=== PATIENT | female | born 1990 | race Caucasian/White ===

== ENCOUNTER 2024-09-15 15:40 | Outpatient (CLI) | payer BC, SELFPAY ==
[2024-09-15 16:49] LABS: Thyroid Stimulating Hormone 0.399 uIU/mL (0.465-4.680)
--- OUTSIDE RECORDS SUMMARY | 2024-09-15 17:04 | XMS_ITS | Referral Summary ---
Author Organization [facility] al Address [address] [place] [address] Care Team Providers Care Credit Review Manager Name Role Phone No, Physician Primary Care Provider [phone] Encounters Date Type Department Care Team Description 07/15/2024 Telephone [facility] [address] [place] [address] [address] [place] [address] Joan Rajan from Last 3 Months Allergies No known active allergies Medications spironolactone (ALDACTONE) 50 mg tablet Take 1 tablet (50 mg total) by mouth daily 90 tablet 3 06/14/2020 Active multivit [id number] 1-dha 27 mg iron-1 mg -300 mg capsuleIndicatio ns:General counseling and advice on procreative management Take 1 tablet/caps ule by mouth daily 30 capsule 11 02/16/2024 Active Active Problems No known active problems Social History Tobacco Use Types Packs/Day Years Used Date Smoking Tobacco: Never Smokeless Tobacco: Never AUDIT-C Answer Date Recorded Q1: How often do you have a drink containing alc ohol? 2-4 times a month 02/16/2024 Q2: How many drinks containi ng alcohol do you have on a typical day when you are drinking? 1 or 2 02/16/2024 Frequency of Binge Drinking Not on file 01/28 Personal Safety Answer Date Recorded Getting School Help Needed Not on file 09/13 Comments No Sex and Gender Information Value Date Recorded Sex Assigned at Not on file Legal Sex Female 8:02 AM SANITARIAN Gender Identity Female 11/18/2019 2:54 PM CDT Sexual Orientation Straight 11/18/2019 2: 54 PM CDT Last Filed Vital Signs Vital Sign Reading Time Taken Comments Blood Pressure 131/87 02/16/2024 2:56 PM CDT Pulse 102 08/25/2018 10:53 PM SANITARIAN Temperature 37.6 C (99.7 F) 08/25/2018 10:53 PM SANITARIAN Respiratory Rate 17 08/25/2018 10:53 PM SANITARIAN Oxygen Saturation 100% 08/25/2018 10:53 PM SANITARIAN Inhaled Oxygen Concentration - - Weight 119.3 kg (263 lb) 02/16/2024 2:56 PM CDT Height 167.6 cm (5' 6 ) 02/16/2024 2:56 PM CDT Body Mass Index 42.45 02/16/2024 2:56 PM CDT Plan of Treatment Not on file Procedures Procedure Name Priority Date/Time Associated Diagnosis Comments HIGH RISK HPV DNA DETECTION WITH GENOTYPING Routine 02/16/2024 3:33 PM CDT Well woman exam from Last 3 Months or Most Recently Relevant to Health Maintenance Results * (ABNORMAL) High Risk HPV DNA Detection with Genotyping (Molecular component) (02/16/2024 3:33 PM CDT) Pathologist [facility] HPV HR 16 Not Detected Not Detected [facility] HPV HR 18 Not Detected Not Detected [facility] HPV HR Non 16/18 Detected(A) Not Detected [facility] Comment: Interpretive Data Nucleic acid amplification for detection of high-risk Human Papilloma virus (HPV) is performed by the Pallavi Roseanne 6800 HPV test. This assay specifically detects HPV-16 and HPV-18 genotypes. The following HPV genotypes are detected as high-risk HPV: HPV-31, 33, 35, ,39, 45, 51, 52, 56, 58, 59, 66, and 68. This assay has been approved by the [place] Food and Drug Administration for detection of HPV in cervical specimens collected by a physician using an endocervical brush/spatula or cervical broom and placed in the ThinPrep Pap Test PreservCyt collection containers. The performance characteristics of this test have been verified by the [facility] Molecular Infectious Disease laboratory. Correlate with separately reported cytology results, as applicable. Interpretive data last revised 22 Endocervical 02/16/2024 3:33 PM CDT 02/17/2024 10:08 AM CDT Narrative [facility] - 02/18/2024 9:59 AM CDT Clinical history and diagnosis->33yo G0 Number of vials->1 Testing type->Screening Last menstrual period (date if known)->NA/IUD Contraceptive use->Hormonal Contraceptive use->IUD Everett Taylor MD LAB BODY FLUIDS AND STOOLS ORDERABLES Final Result [facility] Department [place] [address] [facility] from Last 3 Months or Most Recently Relevant to Health Maintenance Insurance [facility] [employer] [facility] [employer] Care Teams Credit Review Manager Relationship Specialty Start Date End Date No, Physician PCP - General 07/23/18
--- OUTSIDE RECORDS SUMMARY | 2024-09-15 17:04 | XMS_ITS | Clinical Summary ---
Author Organization [facility] al Address [address] [place] [address] Care Team Providers Care Budget Counselor Name Role Phone No, Physician Primary Care Provider [phone] Allergies No known active allergies Medications spironolactone (ALDACTONE) 50 mg tablet Take 1 tablet (50 mg total) by mouth daily 90 tablet 3 06/14/2020 Active multivit [id number] 1-dha 27 mg iron-1 mg -300 mg capsuleIndicatio ns:General counseling and advice on procreative management Take 1 tablet/caps ule by mouth daily 30 capsule 11 02/16/2024 Active Active Problems No known active problems Encounters Date Type Department Care Team Description 07/15/2024 Telephone [facility] [address] [place] [address] [address] [place] [address] Joan Rajan from Last 3 Months Family History Medical History Relation Name Comments Lymphoma Father Thyroid disease Mother Relation Name Status Comments Father Mother Social History Tobacco Use Types Packs/Day Years [...] on file 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 Gender Identity Female 11/18/2019 2:54 PM CDT Sexual Orientation Straight 11/18/2019 2: 54 PM CDT Obstetrics History Para Term AB IAB SAB Ectopic Multiple Livin g Live Births 0 0 0 0 0 0 0 0 0 0 0 Last Filed Vital Signs Vital Sign Reading Time Taken Comments Blood Pressure 131/87 02/16/2024 2:56 PM CDT Pulse 102 08/25/2018 10:53 PM COMMUNICATIONS ELECTRICIAN SUPERVISOR Temperature 37.6 C (99.7 F) 08/25/2018 10:53 PM COMMUNICATIONS ELECTRICIAN SUPERVISOR Respiratory Rate 17 08/25/2018 10:53 PM COMMUNICATIONS ELECTRICIAN SUPERVISOR Oxygen Saturation 100% 08/25/2018 10:53 PM COMMUNICATIONS ELECTRICIAN SUPERVISOR Inhaled Oxygen Concentration - - Weight 119.3 kg (263 lb) 02/16/2024 2:56 PM CDT Height 167.6 cm (5' 6 ) 02/16/2024 2:56 PM CDT Body Mass Index 42.45 02/16/2024 2:56 PM CDT Plan of Treatment Health Maintenance Due Date Last Done Comments Depression Screening 1991 Hepatitis C Screening 1991 DTaP/Tdap/Td Vaccine (1 - Tdap) 2002 Varicella Vaccines (1 of 2 - 13+ 2-dose series) 2004 Hepatitis B Screening 2009 Regular Well Visit/Exam 18-64 2009 Influenza Vaccine (#1) 2024 Cervical Cancer Screening 02/15/20252023, 02/16/2024 HPV Vaccines Aged Out No longer eligi ble based on patient's age to complete this topic Pneumococcal vaccine <65 Aged Out No longer eligible based on patient's age to complete this topic Procedures Procedure Name Priority Date/Time Associated Diagnosis Comments HIGH RISK HPV DNA DETECTION WITH GENOTYPING Routine 02/16/2024 3:33 PM CDT Well woman exam from Last 3 Months or Most Recently Relevant to Health Maintenance Results * (ABNORMAL) High Risk HPV DNA Detection with Genotyping (Molecular component) (02/16/2024 3:33 PM CDT) Pathologist [facility] HPV HR 16 Not Detected Not Detected [facility] HPV HR 18 Not Detected Not Detected [facility] HPV HR Non 16/18 Detected(A) Not Detected [facility] Comment: Interpretive Data Nucleic acid amplification for [...] this test have been verified by the [facility] Molecular Infectious Disease laboratory. Correlate with separately reported cytology results, as applicable. Interpretive data last revised 22 Endocervical 02/16/2024 3:33 PM CDT 02/17/2024 10:08 AM CDT Narrative [facility] - 02/18/2024 9:59 AM CDT Clinical history and diagnosis->33yo G0 Number of vials->1 Testing type->Screening Last menstrual period (date if known)->NA/IUD Contraceptive use->Hormonal Contraceptive use->IUD Everett Taylor MD LAB BODY FLUIDS AND STOOLS ORDERABLES Final Result [facility] Department of Laboratories [place], [place] [id number] [facility] from Last 3 Months or Most Recently Relevant to Health Maintenance Insurance [facility] [employer]AL [facility] [employer] Care Teams Budget Counselor Relationship Specialty Start Date End Date No, Physician PCP - General 07/23/18
[2024-09-15 19:42] LABS: Hemoglobin A1C 5.1 % (<5.7)
[2024-09-16 06:04] LABS: Progesterone <0.5 ng/mL
[2024-09-21 02:49] LABS: FSH 4.6 mIU/mL; LH 6.8 mIU/mL; Prolactin 11.6 ng/mL
== END 2024-09-15 15:41 | disposition home or self-care (01) ==
LOC: ANHLAB 15:42
PROVIDERS: Visit Provider Student in an Organized Health Care Education/Training Program
DX: N91.2 Amenorrhea, unspecified (principal)
CPT/HCPCS: 36415; 82672; 83001; 83002; 83036; 84144; 84146; 84403; 84443

== ENCOUNTER 2025-02-03 15:03 | Outpatient (CLI) | payer BC, SELFPAY ==
--- OUTSIDE RECORDS SUMMARY | 2025-02-03 15:07 | XMS_ITS | Clinical Summary ---
Author Organization [facility] Address [address] [place] [address] Care Team Providers Care Billing Clerk Name Role Phone Daniel Kim MD Primary Care Provider [phone] Veto Aaron MD Unavailable [phone] Allergies No known active allergies Medications multivit [id number] 1-dha 27 mg iron-1 mg -300 mg capsuleIndicatio ns:General counseling and advice on procreative management Take 1 tablet/caps ule by mouth daily 30 capsule 11 02/16/2024 Active medroxyPROGESTER one (PROVERA) 10 mg tablet 12/22/2024 Active metFORMIN (GLUCOPHAGE) 500 mg tablet 12/14/2024 Active semaglutide (WEGOVY) 0.25 mg/0.5 mL auto-injector Inject 0.25 mg under the skin every 7 days 2 mL 12/22/2024 Active Active Problems Problem Noted Date Diagnosed Date PCOS (polycystic ovarian syndrome) 12/22/2024 Class 3 severe obesity due t o excess calories without serious comorbidity with body mass index (BMI) of 40.0 to 44.9 in adult 12/22/2024 Encounters Date Type Department Care Team Description 12/24/2024 Telephone [facility] Primary Care at [address] [address] Daniel Kim MD PA for Wegovy 0.25MG/0.5ML auto-injectors 12/22/2024 9:30 AM CDT Office Visit [facility] Primary Care at [address] [address] Daniel Kim MD Establishing care with new doctor, encounter for (Primary Dx); Screening, lipid; Screening for thyroid disorder; Family history of thyroid disease in mother; Need for hepatitis B screening test; Need for hepatitis C screening test from Last 3 Months Immunizations Immunization Administration Dates Next Due Influenza, Trivalent, Cell C ulture-based MDCK, Preservative Free, Antibiotic Free, Intramuscular 06/28/2024 Tdap 06/28/2024 Medical History Medical History Date Comments PCOS (polycystic ovarian syndrome) Class 3 severe obesity due t o excess calories without serious comorbidity with body mass index (BMI) of 40.0 to 44.9 in adult 12/22/2024 Family History Medical History Relation Name Comments Obesity Brother 1 Zeke Lyon No Known Problems Brother 2 No Known Problems Brother 3 No Known Problems Brother 4 Lymphoma Father Brown Lyon Lung cancer Maternal Grandfather Stroke Maternal Grandmother Hearing loss Mother Lily Lyon Obesity Mother Lily Lyon Thyroid disease Mother Lily Lyon Skin cancer Paternal Grandfather Stroke Paternal Grandmother Diabetes Neg Hx Relation Name Status Comments Brother 1 Zeke Lyon Alive Brother 2 Alive Brother 3 Alive Brother 4 Alive Father Brown Lyon Alive Maternal Grandfather Maternal Grandmother Alive Mother Lily Lyon Alive Paternal Grandfather Paternal Grandmother Social History Tobacco Use Types Packs/Day Years Used Date Smoking Tobacco: Never Smokeless Tobacco: Never AUDIT-C Answer Date Recorded Q1: How often do you have a drink containing alc ohol? 2-4 times a month 12/22/2024 Q2: How many drinks containi ng alcohol do you have on a typical day when you are drinking? 1 or 2 12/22/2024 Q3: How often do you have si x or more drinks on one occasion? 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 Gender Identity Female 11/18/2019 2:54 PM CDT Sexual Orientation Straight 11/18/2019 2: 54 PM CDT Obstetrics History Para Term AB IAB SAB Ectopic Multiple Livin g Live Births 0 0 0 0 0 0 0 0 0 0 0 Last Filed Vital Signs Vital Sign Reading Time Taken Comments Blood Pressure 118/80 12/22/2024 9:38 AM CDT Pulse 85 12/22/2024 9:38 AM CDT Temperature 36.2 C (97.1 F) 12/22/2024 9:38 AM CDT Respiratory Rate 18 12/22/2024 9:38 AM CDT Oxygen Saturation 98% 12/22/2024 9:38 AM CDT Inhaled Oxygen Concentration - - Weight 120.7 kg (266 lb) 12/22/2024 9:38 AM CDT Height 167.6 cm (5' 6) 12/22/2024 9:38 AM CDT Body Mass Index 42.93 12/22/2024 9:38 AM CDT Plan of Treatment Health Maintenance Due Date Last Done Comments Hepatitis C Screening 1991 Varicella Vaccines (1 of 2 - 13+ 2-dose series) 2004 Hepatitis B Screening 2009 HPV Vaccines (1 - 3-dose SCD M series) 2018 Cervical Cancer Screening 02/15/20252023, 02/16/2024 Influenza Vaccine (#1) 2025 06/28/2024 Depression Screening 12/22/2025 12/22/2024 Regular Well Visit/Exam 18-64 12/22/2025 12/22/2024 DTaP/Tdap/Td Vaccine (2 - Td or Tdap) 06/28/2034 06/28/2024 Pneumococcal vaccine <65 Aged Out No longer [...] Genotyping (Molecular component) (02/16/2024 3:33 PM CDT) HPV HR 16 Not Detected Not Detected [facility] HPV HR 18 Not Detected Not Detected [facility] HPV HR Non 16/18 Detected(A) Not Detected [facility] Comment: Interpretive Data Nucleic acid amplification [...] this test have been verified by the [facility] Molecular Infectious Disease laboratory. Correlate with separately reported cytology results, as applicable. Interpretive data last revised 22 Endocervical 02/16/2024 3:33 PM CDT 02/17/2024 10:08 AM CDT Narrative [facility] - 02/18/2024 9:59 AM CDT Clinical history and diagnosis->33yo G0 Number of vials->1 Testing type->Screening Last menstrual period (date if known)->NA/IUD Contraceptive use->Hormonal Contraceptive use->IUD Everett Taylor MD LAB BODY FLUIDS AND STOOLS ORDERABLES Final Result Performing Organization Address City/State/[facility] Co de Phone Number [facility] Department [place] [address] [facility] from Last 3 Months or Most Recently Relevant to Health Maintenance Insurance [facility] [employer] [facility] [employer] Care Teams Billing Clerk Relationship Specialty Start Date End Date Daniel Kim MD [address] [place] [address] PCP - General Family Medicine 12/22/24 Veto Aaron MD [address] [place] [address] Consulting Physician Obstetrics and Gynecology 12/22/24
== END 2025-02-03 15:04 | disposition home or self-care (01) ==
LOC: ANHLAB 15:06
PROVIDERS: PCP Family Medicine; Visit Provider Student in an Organized Health Care Education/Training Program
DX: N91.2 Amenorrhea, unspecified (principal)
CPT/HCPCS: 84144